=== PATIENT | female | born 1955 | race Two or more races ===

== ENCOUNTER 2017-02-06 19:13 | Emergency (ER) | payer OTHER ==
[2017-02-06 19:26] VITALS: RESP 18; TEMP 98.8
[2017-02-06] MEDS ORDERED: NS 1,000 ML IV ONE (19:36)
[2017-02-06] MEDS ORDERED: ONDANSETRON 4 MG/2 ML VIAL IVP ONE (19:36)
[2017-02-06 19:45] LABS: % IMMATURE GRANULYOCYTES 0.7 % (0.0-1.1); ABSOLUTE IMMATURE GRANULOCYTES 0.08 10^3/uL (0.00-0.10); ADD DIFF? NO; ADD MORPH? NO; ADD SCAN? NO; ATYPICAL LYMPHOCYTE FLAG 0 (0-99); FRAGMENT RBC FLAG 0 (0-99); HEMATOCRIT 41.4 % (38.0-47.0); LEFT SHIFT FLG 0 (0-99); LIPEMIA HEMOLYSIS FLAG 90 (0-99); MEAN CELL HEMOGLOBIN CONCENTR. 33.8 g/dL (32.4-36.7); MEAN CELL VOLUME 85.9 fL (81.5-99.8); MEAN PLATELET VOLUME 9.8 fL (8.7-11.7); PLATELET CLUMPS FLAG 10 (0-99); PLATELET COUNT 292 10^3/uL (150-400); RED BLOOD CELL COUNT 4.82 10^6/uL (4.18-5.33); RED CELL DISTRIBUTION WIDTH 12.6 % (11.5-15.2)
[2017-02-06 20:01] LABS: ANION GAP 16 mEq/L (8-16); CALCIUM 9.4 mg/dL (8.5-10.4); CARBON DIOXIDE 25 mEq/l (22-31); CHLORIDE 103 mEq/L (97-110); CREATININE 0.7 mg/dL (0.6-1.0); GLOMERULAR FILTRATION RATE > 60; GLUCOSE 81 mg/dL (70-100); SODIUM 144 mEq/L (134-144)
--- NOTE | 2017-02-06 20:25 | UCPHY ---
H & P Patient Type: Established Chief Complaint Nursing Narrative: Nausea, vomiting, diarrhea, and epigastric pain since this AM. Time Seen by Provider: 02/06/17 19:21 HPI/ROS: This patient describes nasal congestion over the past few days and then onset of vomiting and diarrhea this morning. She has had a few episodes of both with loose watery brown stool. She reports associated mild fatigue. She also has intermittent crampy epigastric pain associated with her symptoms. The crampy epigastric pain is mild in intensity with no exacerbating factors except for worsening when she vomits. ROS: No high fevers or chills. HEENT: No sore throat. No ear pain. No headache. Pulmonary: No cough. No dyspnea. Cardiovascular: No significant lightheadedness. GI: No hematemesis. No dark tarry stools. : She has noticed any dysuria. 10 point ROS is otherwise negative Source: Patient, Family (Her accompanies her and provides translation from [place]) Exam Limitations: No limitations, Language barrier - Personal History Current Tetanus Diphtheria and Acellular Pertussis (TDAP): Yes Tetanus Vaccine Date: within 10 years - Medical/Surgical History Hx Asthma: No Hx Chronic Respiratory Disease: No Hx Diabetes: Yes Hx Cardiac Disease: No Hx Renal Disease: No Hx Cirrhosis: No Hx Alcoholism: No Hx HIV/AIDS: No Hx Splenectomy or Spleen Trauma: No Other PMH: DM, HTN - Family History Significant Family History: No pertinent family hx - Social History Smoking Status: Never smoked Alcohol Use: None Drug Use: None Additional Social History: No recent foreign travel or other risk factors for dysentery - Physical Exam Exam: General Appearance: Alert, no distress. Eyes: Pupils equal and round no pallor or injection. ENT, Mouth: Mucous membranes moist. Respiratory: There are no retractions, lungs are clear to auscultation. Cardiovascular: Regular rate and rhythm. Gastrointestinal: Hyperactive bowel sounds, soft, minimal epigastric tenderness no guarding or rebound. Neurological: Alert with no focal deficits Skin: Warm and dry, no rashes. Musculoskeletal: Neck is supple nontender. No CVA tenderness Extremities are symmetrical, full range of motion. Psychiatric: Mood and affect are normal DIFFERENTIAL DIAGNOSIS: After history and physical exam differential diagnosis was considered for viral gastroenteritis, dehydration, UTI, DKA, Constitutional: Initial Vital Signs Temperature (C) 37.1 C 02/06/17 19:24 Heart Rate 91 02/06/17 19:24 Respiratory Rate 18 02/06/17 19:24 Blood Pressure 147/77 H 02/06/17 19:24 O2 Sat (%) 94 02/06/17 19:24 O2 Delivery Mode Room Air Allergies/Adverse Reactions: No Known Allergies Allergy (Verified 02/06/17 19:26) Home Medications: Medication Instructions Recorded Cephalexin [Keflex (*)] 500 mg PO TID #21 cap 02/06/17 Lisinopril 02/06/17 Metoprolol Tartrate 02/06/17 Ondansetron Odt [Zofran Odt] 4 - 8 mg PO Q4PRN PRN #4 tab 02/06/17 Medical Decision Making ED Course/Re-evaluation: IV normal saline bolus Zofran with resolution of nausea vomiting Levsin with improvement in her abdominal cramping Keflex for UTI. Discussion: I think findings are most consistent with viral gastroenteritis complicated by cystitis. Clinically I do not think this patient has pyelonephritis of this may be early pyelonephritis. I counseled her and her regarding this. The time of discharge feels comfortable with normal vital signs - Data Points Laboratory Results: Laboratory Results 02/06/17 19:41 02/06/17 19:41 02/06/17 02/06/17 02/06/17 20:15 19:41 19:41 WBC 11.45 10^3/uL H 10^3/uL (3.80-9.50) RBC 4.82 10^6/uL 10^6/uL (4.18-5.33) Hgb 14.0 g/dL g/dL (12.6-16.3) Hct 41.4 % % (38.0-47.0) MCV 85.9 fL fL (81.5-99.8) MCH 29.0 pg pg (27.9-34.1) MCHC 33.8 g/dL g/dL (32.4-36.7) RDW 12.6 % % (11.5-15.2) Plt Count 292 10^3/uL 10^3/uL (150-400) MPV 9.8 fL fL (8.7-11.7) Neut % (Auto) 55.2 % % (39.3-74.2) Lymph % (Auto) 36.2 % % (15.0-45.0) [place] % (Auto) 6.1 % % (4.5-13.0) Eos % (Auto) 1.3 % % (0.6-7.6) Baso % (Auto) 0.5 % % (0.3-1.7) Nucleat RBC Rel Count 0.0 % % (0.0-0.2) Absolute Neuts (auto) 6.31 10^3/uL 10^3/uL (1.70-6.50) Absolute Lymphs (auto) 4.15 10^3/uL H 10^3/uL (1.00-3.00) Absolute Monos (auto) 0.70 10^3/uL 10^3/uL (0.30-0.80) Absolute Eos (auto) 0.15 10^3/uL 10^3/uL (0.03-0.40) Absolute Basos (auto) 0.06 10^3/uL 10^3/uL (0.02-0.10) Absolute Nucleated RBC 0.00 10^3/uL 10^3/uL (0-0.01) Immature Gran % 0.7 % % (0.0-1.1) Immature Gran # 0.08 10^3/uL 10^3/uL (0.00-0.10) Sodium 144 mEq/L mEq/L (134-144) Potassium 4.0 mEq/L mEq/L (3.5-5.2) Chloride 103 mEq/L mEq/L (97-110) Carbon Dioxide 25 mEq/l mEq/l (22-31) Anion Gap 16 mEq/L mEq/L (8-16) BUN 28 mg/dL H mg/dL (7-23) Creatinine 0.7 mg/dL mg/dL (0.6-1.0) Estimated GFR > 60 Glucose 81 mg/dL mg/dL (70-100) Calcium 9.4 mg/dL mg/dL (8.5-10.4) Urine Color YELLOW Urine Appearance HAZY Urine pH 6.0 (5.0-7.5) Ur Specific [place] 1.025 (1.002-1.030) Urine Protein TRACE H (NEGATIVE) Urine Ketones NEGATIVE (NEGATIVE) Urine Blood NEGATIVE (NEGATIVE) Urine Nitrate NEGATIVE (NEGATIVE) Urine Bilirubin NEGATIVE (NEGATIVE) Urine Urobilinogen 0.2 EU EU (0.2-1.0) Ur Leukocyte Esterase 1+ H (NEGATIVE) Urine RBC NONE SEEN /hpf /hpf (0-3) Urine WBC 10-15 /hpf H /hpf (0-3) Ur Epithelial Cells 3+ /lpf H /lpf (NONE-1+) Urine Bacteria 2+ /hpf H /hpf (NONE SEEN) Hyaline Casts OCCASIONAL /lpf /lpf (0-1) Urine Mucus 2+ /lpf H /lpf (NONE-1+) Ur Culture Indicated? INDICATED H (NI) Urine Glucose NEGATIVE (NEGATIVE) Medications Given: Discontinued Medications Cephalexin HCl (Keflex) 500 mg PO EDNOW ONE PRN Reason: Protocol Stop: 02/06/17 20:38 Last Admin: 02/06/17 20:45 Dose: 500 mg Hyoscyamine Sulfate (Levsin, Hyomax-Sl) 0.25 mg PO EDNOW ONE Stop: 02/06/17 20:27 Last Admin: 02/06/17 20:37 Dose: 0.25 mg Sodium Chloride (Ns) 1,000 mls @ 0 mls/hr IV ONCE ONE PRN Reason: Wide Open Stop: 02/06/17 19:37 Last Admin: 02/06/17 19:48 Dose: 1,000 mls Ondansetron HCl (Zofran) 4 mg IVP EDNOW ONE Stop: 02/06/17 19:37 Last Admin: 02/06/17 19:48 Dose: 4 mg Departure - Departure Disposition: Home, Routine, Self-Care Clinical Impression: Viral gastroenteritis, Dehydration, Cystitis Condition: Good Instructions: Gastroenteritis (ED) Additional Instructions: Diagnoses: 1. Viral gastroenteritis 2. Dehydration 3. Cystitis (bladder infection) Plan: Drink plenty fluids Zofran for nausea vomiting Imodium if needed for diarrhea Light diet to feel improved Typically the symptoms improve over the course of 1-3 days. Return for any significant worsening despite the treatment Referrals: NONE *PRIMARY CARE P,. [Primary Care Provider] - As per Instructions Stand Alone Forms: Work Excuse Prescriptions: Cephalexin [Keflex (*)] 500 mg PO TID #21 cap Ondansetron Odt [Zofran Odt] 4 - 8 mg PO Q4PRN PRN #4 tab PRN Reason: Vomiting - PQRS PQRS Measurement: NA
[2017-02-06] MEDS ORDERED: HYOSCYAMINE SULFATE 0.125 MG TAB PO ONE (20:26)
[2017-02-06 20:33] LABS: COLOR YELLOW; LEUKOCYTE ESTERASE,URINE 1+ (NEGATIVE); NITRITE,URINE NEGATIVE (NEGATIVE)
[2017-02-06] MEDS ORDERED: CEPHALEXIN 500 MG CAP PO ONE (20:37)
[2017-02-06 20:48] LABS: BACTERIA 2+ /hpf (NONE SEEN); MUCUS 2+ /lpf (NONE-1+); RBC,URINE NONE SEEN /hpf (0-3)
[2017-02-06 20:49] LABS: HYALINE CASTS OCCASIONAL /lpf (0-1)
[2017-02-06 21:06] VITALS: BP 141/75; PULSE 79; O2SAT 95
== END 2017-02-06 21:05 | disposition home or self-care (01) ==
LOC: CED 19:13
DX: A08.4 Viral intestinal infection, unspecified (principal); E86.0 Dehydration; N30.90 Cystitis, unspecified without hematuria
CPT/HCPCS: 80048-PO; 81003-PO; 81015-PO; 85025-PO; 96361-PO; 96374-PO; 99215-PO; G0463-PO; J2405

== ENCOUNTER 2017-12-03 19:31 | Emergency (ER) | payer BC, OTHER ==
--- NOTE | 2017-12-03 19:50 | EDPHY ---
H & P Time Seen by Provider: 12/03/17 19:42 HPI/ROS: CHIEF COMPLAINT: Sore throat, cough, left rib pain HISTORY OF PRESENT ILLNESS: The patient is a 62-year-old female who complains of a sore throat that began about 2 weeks ago and then a cough associated left rib pain that began about 4 days ago. No chest pain. Mild shortness of breath with exertion. No leg pain or swelling. No history of cardiac disease. She has also had a runny nose and mild muscle aches. No fever. Twice she has coughed hard enough to vomit. REVIEW OF SYSTEMS: Constitutional: denies: chills, fever, recent illness, recent injury EENTM: See HPI Respiratory: See HPI Cardiac: denies: chest pain, irregular heart rate, lightheadedness, palpitations Gastrointestinal/Abdominal: denies: abdominal pain, diarrhea, nausea, vomiting, blood streaked stools Genitourinary: denies: dysuria, frequency, hematuria, pain Musculoskeletal: denies: joint pain, muscle pain Skin: denies: lesions, rash, jaundice, bruising Neurological: denies: headache, numbness, paresthesia, tingling, dizziness, weakness Hematologic/Lymphatic: denies: blood clots, easy bleeding, easy bruising Immunologic/allergic: denies: HIV/AIDS, transplant EXAM: GENERAL: Well-appearing, well-nourished and in no acute distress. HEAD: Atraumatic, normocephalic. EYES: Pupils equal round and reactive to light, extraocular movements intact, sclera anicteric, conjunctiva are normal. ENT: TMs normal, nares patent, oropharynx clear without exudates. Moist mucous membranes. NECK: Normal range of motion, supple without lymphadenopathy or JVD. LUNGS: Breath sounds clear to auscultation bilaterally and equal. No wheezes rales or rhonchi. HEART: Regular rate and rhythm without murmurs, rubs or gallops. ABDOMEN: Soft, nontender, normoactive bowel sounds. No guarding, no rebound. No masses appreciated. BACK: No CVA tenderness, no spinal tenderness, step-offs or deformities EXTREMITIES: Normal range of motion, no pitting or edema. No clubbing or cyanosis. NEUROLOGICAL: Cranial nerves II through XII grossly intact. Normal speech, normal gait. 5/5 strength, normal movement in all extremities, normal sensation PSYCH: Normal mood, normal affect. SKIN: Warm, dry, normal turgor, no visible rashes or lesions. Source: Patient Exam Limitations: No limitations - Personal History Tetanus Vaccine Date: within 10 years - Medical/Surgical History Hx Asthma: No Hx Chronic Respiratory Disease: No Hx Diabetes: Yes Hx Cardiac Disease: No Hx Renal Disease: No Hx Cirrhosis: No Hx Alcoholism: No Hx HIV/AIDS: No Hx Splenectomy or Spleen Trauma: No Other PMH: DM, HTN - Family History Significant Family History: No pertinent family hx - Social History Smoking Status: Never smoked Alcohol Use: Sober Drug Use: None Constitutional: Initial Vital Signs Temperature (C) 37.0 C 12/03/17 19:53 Heart Rate 77 12/03/17 19:53 Respiratory Rate 16 12/03/17 19:53 Blood Pressure 169/117 H 12/03/17 19:53 O2 Sat (%) 95 12/03/17 19:53 O2 Delivery Mode Room Air Allergies/Adverse Reactions: No Known Allergies Allergy (Verified 02/06/17 19:26) Home Medications: Medication Instructions Recorded Lisinopril 02/06/17 guaiFENesin/PSEUDOEPHEDRNE HCL 1 each PO BID #10 tab.er.12h 12/03/17 [Mucinex D ER Tablet] metFORMIN SR 12/03/17 Medical Decision Making - Diagnostics EKG Interpretation: An EKG obtained and was read and documented in trace view. Please see trace view for full reading and report. The sinus rhythm, LVH, S1 q.3h T3 no previous for comparison Imaging Results: Imaging Impressions Chest X-Ray 12/03/17 19:48 Impression: Query airways disease with no superimposed acute abnormality identified. Imaging: Discussed imaging studies w/ camera supervisor Radiologist ED Course/Re-evaluation: The patient's EKG is slightly abnormal with some signs of right heart strain that may be baseline but I will add lab work including a D-dimer and troponin. 9:15 p.m. we discussed the imaging and lab results which are reassuring. Patient likely has bronchitis or other viral infection. Her troponin is negative in the face of 2 weeks of symptoms. D-dimer is negative. I will prescribe her Mucinex and will give her Tylenol with codeine here tonight because the pharmacies are closed. She is happy with this plan and declines further workup or treatment at this time. Differential Diagnosis: Partial list of the Differential diagnosis considered include but were not limited to; bronchitis, pneumonia, influenza and although unlikely based on the history and physical exam, I also considered dissection, PE, acute coronary disease. I discussed these differential diagnoses and the plan with the patient as well as the usual and expected course. The patient understands that the diagnosis is provisional and that in medicine we are not always correct and that further workup is often warranted. Usual and customary warnings were given. All of the patient's questions were answered. The patient was instructed to return to the emergency department should the symptoms at all worsen or return, otherwise to followup with the physician as we discussed. - Data Points Laboratory Results: Laboratory Results 12/03/17 20:19 12/03/17 20:19 12/03/17 12/03/17 12/03/17 20:19 20:19 20:19 WBC 12.07 10^3/uL H 10^3/uL (3.80-9.50) RBC 5.14 10^6/uL 10^6/uL (4.18-5.33) Hgb 15.0 g/dL g/dL (12.6-16.3) Hct 43.1 % % (38.0-47.0) MCV 83.9 fL fL (81.5-99.8) MCH 29.2 pg pg (27.9-34.1) MCHC 34.8 g/dL g/dL (32.4-36.7) RDW 12.3 % % (11.5-15.2) Plt Count 280 10^3/uL 10^3/uL (150-400) MPV 10.1 fL fL (8.7-11.7) Neut % (Auto) 65.6 % % (39.3-74.2) Lymph % (Auto) 27.8 % % (15.0-45.0) [place] % (Auto) 4.4 % L % (4.5-13.0) Eos % (Auto) 1.0 % % (0.6-7.6) Baso % (Auto) 0.5 % % (0.3-1.7) Nucleat RBC Rel Count 0.0 % % (0.0-0.2) Absolute Neuts (auto) 7.92 10^3/uL H 10^3/uL (1.70-6.50) Absolute Lymphs (auto) 3.35 10^3/uL H 10^3/uL (1.00-3.00) Absolute Monos (auto) 0.53 10^3/uL 10^3/uL (0.30-0.80) Absolute Eos (auto) 0.12 10^3/uL 10^3/uL (0.03-0.40) Absolute Basos (auto) 0.06 10^3/uL 10^3/uL (0.02-0.10) Absolute Nucleated RBC 0.00 10^3/uL 10^3/uL (0-0.01) Immature Gran % 0.7 % % (0.0-1.1) Immature Gran # 0.09 10^3/uL 10^3/uL (0.00-0.10) PT 12.9 SEC SEC (12.0-15.0) INR 0.98 (0.83-1.16) APTT 30.6 SEC SEC (23.0-38.0) D-Dimer < 0.27 ug/mLFEU ug/mLFEU (0.00-0.50) Sodium 143 mEq/L mEq/L (135-145) Potassium 3.7 mEq/L mEq/L (3.5-5.2) Chloride 101 mEq/L mEq/L (97-110) Carbon Dioxide 24 mEq/l mEq/l (22-31) Anion Gap 18 mEq/L H mEq/L (8-16) BUN 16 mg/dL mg/dL (7-23) Creatinine 0.7 mg/dL mg/dL (0.6-1.0) Estimated GFR > 60 Glucose 146 mg/dL H mg/dL (70-100) Calcium 9.6 mg/dL mg/dL (8.5-10.4) Troponin I < 0.012 ng/mL ng/mL (0.000-0.034) Influenza A,B Rapid 12/03/17 19:57 WBC RBC Hgb Hct MCV MCH MCHC RDW Plt Count MPV Neut % (Auto) Lymph % (Auto) [place] % (Auto) Eos % (Auto) Baso % (Auto) Nucleat RBC Rel Count Absolute Neuts (auto) Absolute Lymphs (auto) Absolute Monos (auto) Absolute Eos (auto) Absolute Basos (auto) Absolute Nucleated RBC Immature Gran % Immature Gran # PT INR APTT D-Dimer Sodium Potassium Chloride Carbon Dioxide Anion Gap BUN Creatinine Estimated GFR Glucose Calcium Troponin I Influenza A,B Rapid NEGATIVE FOR FLU (NEGATIVE) Medications Given: Discontinued Medications Acetaminophen/Codeine Phosphate (Tylenol #3) 1 tab PO EDNOW ONE Stop: 12/03/17 21:16 Last Admin: 12/03/17 21:27 Dose: 1 tab Departure - Departure Disposition: Home, Routine, Self-Care Clinical Impression: Bronchitis Condition: Good Instructions: Acute Bronchitis (ED) Referrals: NONE *PRIMARY CARE P,. [Primary Care Provider] - As per Instructions Stand Alone Forms: Work Excuse Prescriptions: guaiFENesin/PSEUDOEPHEDRNE HCL [Mucinex D ER Tablet] 1 each PO BID #10 tab.er.12h
[2017-12-03 19:54] VITALS: RESP 16; TEMP 98.6
--- NOTE | 2017-12-03 20:02 | CPEKG ---
Heart Rate: 85 RR Interval: 706 P-R Interval: 156 QRSD Interval: 102 QT Interval: 396 QTC Interval: 471 P [place]: 37 QRS [place]: -6 T Wave [place]: -13 EKG Severity - ABNORMAL ECG - EKG Impression: SINUS RHYTHM EKG Impression: PROBABLE LEFT ATRIAL ABNORMALITY EKG Impression: LEFT VENTRICULAR HYPERTROPHY EKG Impression: NONSPECIFIC T ABNORMALITIES, INFERIOR LEADS Electronically Signed By: Ariel Schmitt 03-Dec-2017 20:04:17
[2017-12-03 20:24] LABS: PLATELET COUNT 280 10^3/uL (150-400)
[2017-12-03 20:37] LABS: INR 0.98 (0.83-1.16); PROTIME(PATIENT) 12.9 SEC (12.0-15.0)
[2017-12-03] MEDS ORDERED: ACETAMINOPHEN/CODEINE 300/30MG TAB PO ONE (21:15)
[2017-12-03 21:41] VITALS: BP 172/104; PULSE 72; O2SAT 94
== END 2017-12-03 21:40 | disposition home or self-care (01) ==
LOC: CED 19:31
DX: J40 Bronchitis, not specified as acute or chronic (principal); E11.9 Type 2 diabetes mellitus without complications; I10 Essential (primary) hypertension; Z79.84 Long term (current) use of oral hypoglycemic drugs
CPT/HCPCS: 71046-PO; 80048-PO; 84484-PO; 85025-PO; 85378-PO; 85610-PO; 85730-PO; 87400-PO

== ENCOUNTER → 2019-04-11 | Outpatient (CLI) | payer OTHER | LOC: FIMAGING 15:37 ==